=== PATIENT | female | born 1950 | race Caucasian/White ===

== ENCOUNTER 2017-11-16 08:16 | Emergency (ER) | payer BC, MEDICARE, OTHER ==
[2017-11-16 08:26] VITALS: TEMP 98.2; BMI 22.6
[2017-11-16 09:25] LABS: EOS % 0.9 % (0-4.5); HEMATOCRIT 35.6 % (32.4-45.2); HEMOGLOBIN 12.3 GM/dL (10.7-15.3); LYMPH % 25.1 % (8-40); MCH 29.5 pg (25.7-33.7); MCHC 34.6 g/dl (32.0-36.0); MEAN CELL VOLUME 85.2 fl (80-96); MONO % 5.5 % (3.8-10.2); NEUT % 67.5 % (42.8-82.8); PLATELET COUNT 239 K/MM3 (134-434); RBC 4.17 M/mm3 (3.60-5.2); RDW 13.5 % (11.6-15.6)
--- NOTE | 2017-11-16 09:27 | PDOC ---
History of Present Illness - General Chief Complaint: Nasal Bleeding Stated Complaint: SEVERE NOSE BLEED Time Seen by Provider: 11/16/17 08:36 History Source: Patient Exam Limitations: No Limitations - History of Present Illness Initial Comments: 11/16/17 08:34 66-year-old female presents the emergency room with nasal bleeding for the past 7 hours. Patient states awoke at 1:30 with bilateral nasal bleeding. Patient states try putting pressure which seemed to help initially but then returned within the hour. Patient states has been applying pressure since but also states has been frequently blowing her nose to clear the "clots . " Patient states has had nasal bleeding in the past but without medical management requiring cauterization or ER visit. Patient denies anticoagulations disorders, aspirin, or anticoagulation medication. Patient denies recent travel, recent head injury, recent illness or fever. Patient denies headache, visual changes, dizziness, or weakness. Timing/Duration: 4-6 hours Severity: mild Associated Symptoms: reports: denies symptoms Past History - Travel Traveled outside of the country in the last 30 days: No - Past Medical History Allergies/Adverse Reactions: Allergies Allergy/AdvReac Type Severity Reaction Status Date / Time No Known Allergies Allergy Verified 11/16/17 09:13 Home Medications: Ambulatory Orders Requip 1 mg PO TID 11/16/17 Rosuvastatin Calcium [Crestor] 1 mg PO ASDIR 11/16/17 COPD: No Hypercholesterolemia: Yes Other medical history: Breast Lump removal - Suicide/Smoking/Psychosocial Hx Smoking History: Never smoked Information on smoking cessation initiated: No Hx Alcohol Use: No Drug/Substance Use Hx: No Patient Lives Alone: No Review of Systems - Review of Systems Able to Perform ROS?: No Constitutional: No: Symptoms Reported HEENTM: Yes: Nose Bleeding. No: Throat Pain, Dental Problems, Difficulty Swallowing Respiratory: No: Symptoms reported Cardiac (ROS): No: Symptoms Reported ABD/GI: No: Symptoms Reported Musculoskeletal: No: Symptoms Reported Integumentary: No: Symptoms Reported Neurological: No: Symptoms reported Hematologic/Lymphatic: No: Symptoms Reported *Physical Exam - Vital Signs Last Vital Signs Temp Pulse Resp BP Pulse Ox 98.2 F 78 16 139/86 98 11/16/17 08:20 11/16/17 08:20 11/16/17 08:20 11/16/17 08:20 11/16/17 08:20 - Physical Exam General Appearance: Yes: Nourished, Appropriately Dressed. No: Apparent Distress HEENT: positive: EOMI, BRANDY, TMs Normal, Pharynx Normal (Noted blood to the posterior tongue and posterior pharynx. Uvula midline. Patient speaking full sentences. No edema,), Other (noted bright red blood to bilateral Nasal passages with small clots. unable to visualize source of bleeding) Neck: positive: Supple Respiratory/Chest: positive: Lungs Clear, Normal Breath Sounds. negative: Respiratory Distress, Accessory Muscle Use Cardiovascular: positive: Regular Rhythm, Regular Rate. negative: Murmur Extremity: positive: Normal Capillary Refill Integumentary: positive: Normal Color, Warm, Moist Neurologic: positive: Motor Strength 5/5 (ambulatory) ED Treatment Course - LABORATORY CBC & Chemistry Diagram: 11/16/17 09:20 11/16/17 09:20 Medical Decision Making - Medical Decision Making 11/16/17 08:47 Patient with intermittent nasal bleeding since 1:00 this morning. Patient upon arrival applying pressure with tissue. Patient on exam with active bilateral nasal bleeding. Unable to visualize source of bleeding. Taped tongue blades applied, Afrin ordered along with CBC comp and coags. Patient also given ice water to drink via straw and advised not to cough drink fastly, or removed tongue blades until reevaluated 11/16/17 09:49 Laboratory Tests 11/16/17 11/16/17 09:20 09:20 WBC 7.0 Hgb 12.3 Hct 35.6 RDW 13.5 Plt Count 239 Neutrophils % 67.5 PT with INR 11.80 INR 1.04 Will apply Afrin and reevaluate patient 11/16/17 10:14 Patient had no continual bleeding. Tongue blades were removed and Afrin was administered. Tongue blades reapplied and will check again in 5 minutes. 11/16/17 10:44 Tongue blades removed approximately 10 minutes ago and patient is ambulatory in the ER with no continual bleeding. Will discharge patient home with ENT referral with recommendations of no nose blowing or exertional activities for next 48 hours. *DC/Admit/Observation/Transfer Diagnosis at time of Disposition: Epistaxis - Discharge Dispostion Disposition: HOME Condition at time of disposition: Improved - Referrals Referrals: Truman Olivier MD [Staff Physician] - - Patient Instructions Printed Discharge Instructions: DI for Nosebleed Additional Instructions: No nose blowing or exertional activities for next [address] Follow up with [address]. Olivier. Avoid hot fluids for the next 48 hours. - Post Discharge Activity
[2017-11-16] MEDS ORDERED: OXYMETAZOLINE 0.05% NASAL SOLUTION 15 ML BOTTLE NS ONE (09:30)
[2017-11-16 09:42] LABS: INR 1.04 (0.83-1.09); PROTHROMBIN TIME (PATIENT) 11.8 SEC (9.7-13.0)
[2017-11-16 09:56] LABS: ALBUMIN 3.5 g/dl (3.4-5.0); ALK PHOS 77 U/L (45-117); ANION GAP 7 MMOL/L (8-16); BILIRUBIN,TOTAL 0.2 mg/dL (0.2-1.0); BLOOD UREA NITROGEN 23 mg/dL (7-18); CALCIUM 8.7 mg/dL (8.5-10.1); CHLORIDE 109 mmol/L (98-107); CO2 28 mmol/L (21-32); CREATININE 0.7 mg/dL (0.55-1.02); GLUCOSE,RANDOM 93 mg/dL (74-106); POTASSIUM 4.3 mmol/L (3.5-5.1); SGOT/AST 18 U/L (15-37); SGPT/ALT 20 U/L (12-78); SODIUM 144 mmol/L (136-145); TOT PROT 6.7 g/dl (6.4-8.2)
[2017-11-16 10:52] VITALS: BP 121/74; PULSE 68
== END 2017-11-16 10:54 | disposition home or self-care (01) ==
LOC: JER 08:16
PROC: 0W3Q7ZZ Control Bleeding in Respiratory Tract, Via Natural or Artificial Opening (ICD-10-PCS; principal; 2017-11-16)
DX: R04.0 Epistaxis (principal)
CPT/HCPCS: 30999; 36415; 80053; 85025; 85610; 99282-25